=== PATIENT | male | born 1995 | race Two or more races ===

== ENCOUNTER 2017-12-06 21:30 | Emergency (ER) | payer OTHER ==
[~2017-12-06] VITALS: Ht 165.1 cm; Wt 104.3 kg
[2017-12-06 21:50] VITALS: BP 165/96
[2017-12-06] MEDS ORDERED: HYDROcodone/APAP 5/325MG 1 TAB TABLET PO ONE (23:00)
[2017-12-06] MEDS ORDERED: HYDR-2758 PO (23:54)
--- NOTE | 2017-12-06 23:54 | PHYS DOC ---
Past Medical History Past Medical History: No Pertinent History Past Surgical History: No Surgical History Alcohol Use: None Drug Use: None Adult General Chief Complaint Chief Complaint: KNEE INJURY HPI HPI Patient is a 22 year old male who presents to the emergency Department today with complaints of left knee pain after a fall at work today at approximately 1900. Patient states he was working at the [employer] when he tripped and fell and landed on his left knee. Currently he rates reports that his pain is an 8 out of 10 on the pain scale, he took 2 tablets of ibuprofen at approximately 8:00 this evening states that they really didn't help very much. Patient states he is unable to bear weight on his left leg since the fall. Review of Systems Review of Systems Constitutional: Denies fever or chills [] Musculoskeletal: Denies back pain, reports right knee pain and inability to bear weight on lower left extremity secondary to pain. Integument: Denies rash or skin lesions [] Neurologic: Denies headache, focal weakness or sensory changes [] All other systems were reviewed and found to be within normal limits, except as documented in this note. Current Medications Current Medications Current Medications Medications (Trade) Dose Ordered Sig/Margarette Start Time Stop Time Status Last Admin Dose Admin Acetaminophen/ Hydrocodone Bitart (Lortab 5/325) 2 tab 1X ONCE 12/06/17 23:00 12/06/17 23:04 DC 12/06/17 23:32 2 TAB Allergies Allergies Allergies Coded Allergies Type Severity Reaction Last Updated Verified No Known Drug Allergies 12/06/17 No Physical Exam Physical Exam Constitutional: Well developed, well nourished, mild distress, non-toxic appearance, morbidly obese. [] HENT: Normocephalic, atraumatic, bilateral external ears normal, oropharynx moist, no oral exudates, nose normal. [] Eyes: PERRLA,conjunctiva normal, no discharge. [] Lungs & Thorax: Respirations noted to be even and unlabored Skin: Warm, dry, no erythema, no rash. [] Extremities: no cyanosis, no clubbing, decreased range of motion of left knee secondary to pain, mild edema noted to anterior knee, patient reports increased pain with varus stress maneuver and is unable to tolerate range of motion testing otherwise. Neurologic: Alert and oriented X 3, normal motor function, normal sensory function, no focal deficits noted. [] Psychologic: Affect normal, judgement normal, mood normal. [] Current Patient Data Vital Signs Vital Signs Date Time Temp Pulse Resp B/P (MAP) Pulse Ox O2 Delivery O2 Flow Rate FiO2 12/06/17 21:50 97.8 97 16 165/96 (119) 98 Room Air 97.8 EKG EKG [] Radiology/Procedures Radiology/Procedures X-ray of left knee reveals no acute fracture or abnormality read by Dr. Lozada[] Course & Med Decision Making Course & Med Decision Making Pertinent Labs and Imaging studies reviewed. (See chart for details) Patient is a 22-year-old male who presented to the emergency room with complaints of left knee pain after a fall. His vital signs were stable. X-ray of the left knee revealed no acute fracture, dislocation, or other abnormality. Clinically his exam is concerning for a ligament injury, treated as such. A knee immobilizer was applied. Patient will be prescribed in order of hydrocodone. And referral for follow-up with Dr. Krishna was made. Patient and his father verbalized an understanding of discharge instructions, follow-up, medications, and return to ED instructions without any further questions or concerns. The [employer] interpreter deaf line was used to converse with patient and his father. [] Dragon Disclaimer Dragon Disclaimer This electronic medical record was generated, in whole or in part, using a voice recognition dictation system. Departure Departure Impression: Primary Impression: Acute pain of left knee Disposition: 01 HOME, SELF-CARE Condition: STABLE Referrals: LISA RODRIGUEZ MD Patient Instructions: Knee Immobilizer, [id number], Knee Pain, [id number] Additional Instructions: Fill the prescription and use it as directed for relief of pain. Wear the knee immobilizer applied in the emergency room and use the crutches that were continue. Recommend application of ice and elevation of the affected extremity. Activity until you are evaluated by the orthopedic doctor. Call Dr. Rodriguez's office on Friday to schedule a follow-up appointment. Return to the ER if your symptoms worsen. Scripts Hydrocodone Bit/Acetaminophen (HYDROCODONE-APAP 5-325 ) 1 Each Tablet 1 TAB PO PRN Q6HRS PRN for PAIN for 3 Days, #12 TAB 0 Refills Prov: ANN DE LUNA APRN 12/06/17 ANN DE LUNA APRN Dec 06, 2017 23:54
--- NOTE | 2017-12-07 07:47 | RAD ---
Left knee, 3 views, 12/06/2017: HISTORY: Fall, knee pain No fracture or dislocation is identified. No large joint effusion is evident. IMPRESSION: No acute left knee abnormality is detected. Electronically signed by: Rocco Pryor MD (12/07/2017 7:43 AM) [facility]
== END 2017-12-07 00:21 | disposition home or self-care (01) ==
LOC: ER 21:30
DX: G89.11 Acute pain due to trauma (principal); M25.562 Pain in left knee; W01.0XXA Fall on same level from slipping, tripping and stumbling without subsequent striking against object, initial encounter; Y93.89 Activity, other specified; Y99.8 Other external cause status; Y92.89 Other specified places as the place of occurrence of the external cause
CPT/HCPCS: 29505; 73562; 99284-25